=== PATIENT | male | born 1965 | race Caucasian/White ===

== ENCOUNTER 2017-05-02 12:17 | Emergency (ER) | payer BC ==
[2017-05-02] MEDS ORDERED: ONDANSETRON HCL 4 MG/2 ML SOL IV ONE (12:25)
[2017-05-02] MEDS ORDERED: HYDROMORPHONE 1 MG/ML SYRINGE IV ONE ×3 (12:27→13:50)
[2017-05-02] MEDS ORDERED: SODIUM CHLORIDE 0.9% FLUSH 10 ML SOL IV PRN (12:28)
[2017-05-02] MEDS ORDERED: ONDANSETRON HCL 4 MG/2 ML SOL ONE (12:30)
[2017-05-02] MEDS ORDERED: HYDROMORPHONE HCL 2 MG/ML SOL ONE (12:30)
[2017-05-02] MEDS: SODIUM CHLORIDE 0.9% 1000ML 1,000 ML IV SCH ×2 (12:35→13:31)
[2017-05-02] MEDS ORDERED: HYDROMORPHONE 1 MG/ML SYRINGE ONE ×2 (12:50→13:48)
[2017-05-02 12:53] LABS: ALBUMIN 4.1 gm/dl (3.4-5.0); CALCIUM 8.8 mg/dl (8.5-10.1); POTASSIUM 3.5 mMol/L (3.5-5.1)
[2017-05-02 13:17] LABS: EOSINOPHILS % (AUTO) 2 % (0-9); HEMATOCRIT 45 % (39-53); MEAN CORPUSCULAR HGB CONC 33.3 gm/dl (32.0-36.0); MEAN CORPUSCULAR VOLUME 90 fL (80-100); MONOCYTES % (AUTO) 9.1 % (0-12); NEUTROPHILS % (AUTO) 70.6 % (37-80)
[2017-05-02 13:18] LABS: BASOPHILS % (AUTO) 1 % (0-3)
[2017-05-02] MEDS ORDERED: OXYCODONE HYDROCHLORIDE 5 MG TAB PO ONE (13:59)
[2017-05-02] MEDS ORDERED: OXYCODONE HYDROCHLORIDE 5 MG TAB ONE (14:03)
[2017-05-02] MEDS ORDERED: TAMSULOSIN HYDROCHLORIDE 0.4 MG CAP PO ONE (14:20)
[2017-05-02] MEDS ORDERED: TAMSULOSIN HYDROCHLORIDE 0.4 MG CAP ONE (14:46)
[2017-05-02 21:47] VITALS: RESP 16; TEMP 97.5
[2017-05-02 21:52] VITALS: BP 128/79; PULSE 77; O2SAT 97
== END 2017-05-02 15:06 | disposition home or self-care (01) ==
LOC: ED 12:17
DX: K57.32 Diverticulitis of large intestine without perforation or abscess without bleeding (principal); N13.2 Hydronephrosis with renal and ureteral calculous obstruction
CPT/HCPCS: 99285 ×3; 80053; 85025; J1170 ×3; J2405; Q9967; 36415; 74177; 96365; 96374; 96375; 99284